=== PATIENT | female | born 1960 | race Caucasian/White ===

== ENCOUNTER 2022-11-03 09:16 | Emergency (ER) | payer SELFPAY ==
[2022-11-03 10:14] LABS: Absolute Lymphocytes (CBC) 1.4 K/uL (0.7-4.9); Hematocrit 39.5 % (36.0-45.0); Lymphocytes % 29.1 % (15.3-44.8); MCV 91.9 fL (80-100); MPV 6.4 fL (7.6-11.3)
[2022-11-03 10:30] LABS: Potassium 3.5 mmol/L (3.5-5.1); Troponin High Sensitivity 9.1 pg/mL (<58.9)
--- NOTE | 2022-11-03 10:46 | RAD REPORT ---
EXAM DESCRIPTION: RAD - Chest Single View - 11/03/2022 9:54 am CLINICAL HISTORY: DYSPNEA, history of COPD, cough and congestion COMPARISON: None TECHNIQUE: AP portable chest image was obtained 11/03/2022 9:54 am . FINDINGS: No focal mass or consolidation noted. Interstitial markings are prominent. This could all be chronic interstitial lung disease. A minimal superimposed infiltrate or interstitial edema would b e possible. Heart and vasculature are normal. No measurable pleural effusion and no pneumothorax. No acute bony abnormality seen. No acute aortic findings suspected. IMPRESSION: No focal lung parenchymal process. Prominent interstitial lung pattern matches the provided history of COPD. Minimal interstitial edema or infiltrate can be masked in this setting.
[2022-11-03] MEDS ORDERED: IPRATROPIUM BROM 0.5MG/2.5ML ONE (10:48)
[2022-11-03] MEDS ORDERED: ALBUTEROL 2.5 MG/3 ML NEB SOL ONE (10:48)
[2022-11-03] MEDS ORDERED: METHYLPREDNISOLONE 125 MG INJ ONE (10:48)
--- NOTE | 2022-11-03 11:28 | ER ---
Nurse's Notes [facility] Name: Giuliana Freeman Age: 62 yrs Sex: Female : 1960 Arrival Date: 11/03/2022 Time: 09:18 Bed 13 Private MD: Diagnosis: COPD/ Chronic obstructive pulmonary disease with (acute) exacerbation Presentation: 11/03 09:39 Chief complaint: Patient states: cough, chest congestion and shortness of breath that ss has been ongoing x 2-3 months, is getting worse. Pt reports she is having a COPD exacerbation. Coronavirus screen: Client presents with at least one sign or symptom that may indicate coronavirus-19. Ebola Screen: Patient denies exposure to infectious person. Patient denies travel to an Ebola-affected area in the 21 days before illness onset. Initial Sepsis Screen: Does the patient meet any 2 criteria? No. Patient's initial sepsis screen is negative. Does the patient have a suspected source of infection? No. Patient's initial sepsis screen is negative. Risk Assessment: Do you want to hurt yourself or someone else? Patient reports no desire to harm self or others. Onset of symptoms was September 2022. 09:39 Method Of Arrival: Ambulatory ss 09:39 Acuity: TAMRA 3 ss Triage Assessment: 12:03 General: Appears uncomfortable. General: Behavior is calm, cooperative. Respiratory: db Reports shortness of breath since 2 months Onset: The symptoms/episode began/occurred gradually, the patient has moderate shortness of breath. Historical: - Allergies: 09:43 Codeine; ss - PMHx: 09:43 COPD; ss - Immunization history:: Client reports having NOT received the Covid vaccine. - Social history:: Smoking status: Patient/guardian denies using tobacco, the patient reports quitting approximately 1 years ago. Screenin:45 [facility] ED Fall Risk Assessment (Adult) History of falling in the last 3 months, db including since admission No falls in past 3 months (0 pts). [facility] ED Fall Risk Assessment (Adult) Confusion or Disorientation No (0 pts) Intoxicated or Sedated No (0 pts) Impaired Gait No (0 pts) Mobility Assist Device Used No (0 pt) Altered Elimination No (0 pt) Score/Fall Risk Level 0 - 2 = Low Risk Oriented to surroundings, Maintained a safe environment. Abuse screen: Denies threats or abuse. Denies injuries from another. Nutritional screening: No deficits noted. Tuberculosis screening: No symptoms or risk factors identified. Assessment: 10:45 Reassessment: Patient appears in no apparent distress at this time. Patient and/or db family updated on plan of care and expected duration. Pain level reassessed. Patient is alert, oriented x 3, equal unlabored respirations, skin warm/dry/pink. patient came in for shortness of breath that has gradually gotten worse over a couple of months. General: Appears uncomfortable, Behavior is calm, cooperative. Pain: Denies pain. Neuro: No deficits noted. Level of Consciousness is awake, alert, obeys commands, Oriented to person, place, time. Cardiovascular: No deficits noted. Capillary refill < 3 seconds Rhythm is sinus rhythm. Respiratory: Airway is patent Respiratory effort is even, labored, Respiratory pattern is regular, symmetrical, Breath sounds are clear Breath sounds are diminished bilaterally. GI: No deficits noted. No signs and/or symptoms were reported involving the gastrointestinal system. : No deficits noted. No signs and/or symptoms were reported regarding the genitourinary system. EENT: No deficits noted. No signs and/or symptoms were reported regarding the EENT system. Derm: No deficits noted. No signs and/or symptoms reported regarding the dermatologic system. 11:30 Reassessment: Patient appears in no apparent distress at this time. Patient and/or db family updated on plan of care and expected duration. Pain level reassessed. Patient is alert, oriented x 3, equal unlabored respirations, skin warm/dry/pink. Patient states feeling better. Patient states symptoms have improved. 12:30 Reassessment: Patient appears in no apparent distress at this time. No changes from db previously documented assessment. Patient and/or family updated on plan of care and expected duration. Pain level reassessed. Patient is alert, oriented x 3, equal unlabored respirations, skin warm/dry/pink. 12:55 Reassessment: Patient appears in no apparent distress at this time. Patient and/or db family updated on plan of care and expected duration. Pain level reassessed. Patient is alert, oriented x 3, equal unlabored respirations, skin warm/dry/pink. Patient states symptoms have improved. Vital Signs: 09:39 BP 173 / 108; Pulse 97; Resp 20; Temp 97.7(O); Pulse Ox 94% on R/A; Weight 68.04 kg; ss Height 5 ft. 7 in. (170.18 cm); Pain 0/10; 11:00 BP 141 / 76; Pulse 87; Resp 18; Pulse Ox 100% on Nebulizer Mask; db 11:30 BP 150 / 81; Pulse 99; Resp 18; Pulse Ox 95% on R/A; db 12:00 BP 145 / 78; Pulse 96; Resp 20; Pulse Ox 92% on R/A; db 12:30 BP 165 / 86; Pulse 101; Resp 20; Pulse Ox 94% on R/A; db 09:39 Body Mass Index 23.49 (68.04 kg, 170.18 cm) ED Course: 09:18 Patient arrived in ED. mr 09:19 Mehreen Otoole FNP [facility]. jh7 09:19 Catrachita Roberts MD is Attending Physician. jh7 09:43 Triage completed. ss 09:43 Arm band placed on right wrist. ss 09:55 XRAY Chest (1 view) In Process Unspecified. EDMS 10:08 Basic Metabolic Panel Sent. bc6 10:08 CBC with Diff Sent. bc6 10:08 Troponin HS Sent. bc6 10:08 Initial lab(s) drawn, by mo, sent to lab. Inserted saline lock: 20 gauge in left wrist, bc6 using aseptic technique. 10:43 Jazmyne Mejia, RN is Primary Nurse. db 10:45 Patient has correct armband on for positive identification. Bed in low position. Call db light in reach. Side rails up X 1. 10:45 Warm blanket given. db 10:45 No provider procedures requiring assistance completed. db 12:58 IV discontinued, intact, bleeding controlled, No redness/swelling at site. db Administered Medications: 10:45 Drug: SOLU-Medrol (methylPrednisoLONE) 125 mg Route: IVP; Site: right forearm; db 13:01 Follow up: Response: No adverse reaction db 10:45 Drug: Albuterol - atroVENT (ipratropium) (3:1) (2.5 mg - 0.5 mg) 3 ml Route: Nebulizer; db 13:01 Follow up: Response: No adverse reaction db Medication: 10:45 VIS not applicable for this client. db Outcome: 10:45 Condition: stable db 11:28 Discharge ordered by MD. bales 12:58 Discharged to home ambulatory, with family. db 12:58 Condition: stable 12:58 Discharge instructions given to patient, family, Instructed on discharge instructions, follow up and referral plans. Demonstrated understanding of instructions, Prescriptions given X 3. 13:01 Patient left the ED. db Signatures: Dispatcher [employer] [facility] LesterCheryl Shelby, RN RN Mehreen Briggs, DIRECTOR PHYSICAL THERAPY DIRECTOR PHYSICAL THERAPY Jazmyne Javed RN RN Tabitha Garcia 6
--- NOTE | 2022-11-03 11:28 | EDPHYS ---
Physician Documentation [facility] Name: Giuliana Freeman Age: 62 yrs Sex: Female : 1960 Arrival Date: 11/03/2022 Time: 09:18 Bed 13 Private MD: ROSEANN Physician Catrachita Roberts HPI: 11/03 09:15 This 62 yrs old Female presents to ER via Unassigned with complaints of Breathing jh7 Difficulty, Cough, Congestion. 09:15 The patient has shortness of breath at rest, and the patient has a history of COPD. jh7 Onset: The symptoms/episode began/occurred 3 month(s) ago, and became worse. Duration: The symptoms are chronic, for 1 year(s). The patient's shortness of breath is aggravated by exertion. Associated signs and symptoms: Pertinent positives: productive cough, Pertinent negatives: chest pain, dizziness, fever, nausea, numbness in extremities, vomiting. Patient reports that she received a diagnosis of COPD December 2020. States that she is scheduled to see a poultry inseminator for the first time on 17 November. Reports that she has run out of prednisone and albuterol, and reports that she feels that she has been drowning in her secretions for the past few months. States that her shortness of breath has worsened. Reports that she has been filling up water bottles with her secretions over the past few months.. Historical: - Allergies: 09:43 Codeine; ss - PMHx: 09:43 COPD; ss - Immunization history:: Client reports having NOT received the Covid vaccine. - Social history:: Smoking status: Patient/guardian denies using tobacco, the patient reports quitting approximately 1 years ago. ROS: 09:15 Constitutional: Negative for fever, chills, and weight loss, Eyes: Negative for injury, jh7 pain, redness, and discharge, ENT: Negative for injury, pain, and discharge, Neck: Negative for injury, pain, and swelling, Cardiovascular: Negative for chest pain, palpitations, and edema, Abdomen/GI: Negative for abdominal pain, nausea, vomiting, diarrhea, and constipation, Back: Negative for injury and pain, MS/Extremity: Negative for injury and deformity, Skin: Negative for injury, rash, and discoloration, Neuro: Negative for headache, weakness, numbness, tingling, and seizure. 09:15 Respiratory: Positive for cough, with yellow sputum, shortness of breath, at rest. wheezing. 09:15 All other systems are negative. Exam: 09:15 Constitutional: This is a well developed, well nourished patient who is awake, alert, jh7 and in no acute distress. Eyes: Pupils equal round and reactive to light, extra-ocular motions intact. Lids and lashes normal. Conjunctiva and sclera are non-icteric and not injected. Cornea within normal limits. Periorbital areas with no swelling, redness, or edema. ENT: Nares patent. No nasal discharge, no septal abnormalities noted. Tympanic membranes are normal and external auditory canals are clear. Oropharynx with no redness, swelling, or masses, exudates, or evidence of obstruction, uvula midline. Mucous membranes moist. Neck: Trachea midline, no thyromegaly or masses palpated, and no cervical lymphadenopathy. Supple, full range of motion without nuchal rigidity, or vertebral point tenderness. No Meningismus. Cardiovascular: Regular rate and rhythm with a normal S1 and S2. No gallops, murmurs, or rubs. Normal PMI, no JVD. No pulse deficits. Abdomen/GI: Soft, non-tender, with normal bowel sounds. No distension or tympany. No guarding or rebound. No evidence of tenderness throughout. Back: No spinal tenderness. No costovertebral tenderness. Full range of motion. Skin: Warm, dry with normal turgor. Normal color with no rashes, no lesions, and no evidence of cellulitis. MS/ Extremity: Pulses equal, no cyanosis. Neurovascular intact. Full, normal range of motion. Neuro: Awake and alert, GCS 15, oriented to person, place, time, and situation. Motor strength 5/5 in all extremities. Sensory grossly intact. Normal gait. 09:15 Respiratory: mild respiratory distress is noted, Respirations: normal, Breath sounds: wheezing: that is moderate, is heard diffusely. Vital Signs: 09:39 BP 173 / 108; Pulse 97; Resp 20; Temp 97.7(O); Pulse Ox 94% on R/A; Weight 68.04 kg; ss Height 5 ft. 7 in. (170.18 cm); Pain 0/10; 11:00 BP 141 / 76; Pulse 87; Resp 18; Pulse Ox 100% on Nebulizer Mask; db 11:30 BP 150 / 81; Pulse 99; Resp 18; Pulse Ox 95% on R/A; db 12:00 BP 145 / 78; Pulse 96; Resp 20; Pulse Ox 92% on R/A; db 12:30 BP 165 / 86; Pulse 101; Resp 20; Pulse Ox 94% on R/A; db 09:39 Body Mass Index 23.49 (68.04 kg, 170.18 cm) ss MDM: 09:19 Patient medically screened. [facility] 12:30 Differential diagnosis: asthma, Bronchitis Chronic Obstructive Pulmonary Disease [facility] pneumonia, pulmonary edema, reactive airway disease. Data reviewed: vital signs, nurses notes, lab test result(s), EKG, radiologic studies, plain films. Data interpreted: Pulse oximetry: is 96 %. Interpretation: normal. Test interpretation: by ED physician or midlevel provider: ECG, plain radiologic studies. Counseling: I had a detailed discussion with the patient and/or guardian regarding: the historical points, exam findings, and any diagnostic results supporting the discharge/admit diagnosis, to return to the emergency department if symptoms worsen or persist or if there are any questions or concerns that arise at home. Response to treatment: the patient's symptoms have markedly improved after treatment. ED course: The patient symptoms significantly improved after medication and neb therapy. She stated that she felt much better and felt comfortable going home. Gave her strict ER precautions if her symptoms worsened despite medication use, she should return to the ER for further eval. Refilled all medication. The patient plans to follow-up with her poultry inseminator on the .. 11/03 09:32 Order name: Basic Metabolic Panel; Complete Time: 10:55 [facility] 11/03 09:32 Order name: CBC with Diff; Complete Time: 12:24 [facility] 11/03 09:32 Order name: Troponin HS; Complete Time: 10:55 [facility] 11/03 09:32 Order name: XRAY Chest (1 view); Complete Time: 10:55 [facility] 11/03 10:18 Order name: CBC Smear Scan; Complete Time: 12:24 [facility] 11/03 09:32 Order name: EKG; Complete Time: 09:33 [facility] 11/03 09:32 Order name: Cardiac monitoring; Complete Time: 11:11 [facility] 11/03 09:32 Order name: EKG - Nurse/Tech; Complete Time: 12:00 [facility] 11/03 09:32 Order name: IV Saline Lock; Complete Time: 10:08 [facility] 11/03 09:32 Order name: Labs collected and sent; Complete Time: 10:08 [facility] 11/03 09:32 Order name: O2 Per Protocol; Complete Time: 11:11 [facility] 11/03 09:32 Order name: O2 Sat Monitoring; Complete Time: 11:11 EC: Rate is 97 beats/min. Rhythm is regular. QRS [place] is Normal. AL interval is normal at 7 172 msec. QRS interval is normal at 96 msec. QT interval is normal at 352 msec. No Q waves. T waves are Normal. Clinical impression: NSR w/ Non-specific ST/T Changes. Administered Medications: 10:45 Drug: SOLU-Medrol (methylPrednisoLONE) 125 mg Route: IVP; Site: right forearm; db 13:01 Follow up: Response: No adverse reaction db 10:45 Drug: Albuterol - atroVENT (ipratropium) (3:1) (2.5 mg - 0.5 mg) 3 ml Route: Nebulizer; db 13:01 Follow up: Response: No adverse reaction db Disposition: 18:39 STAFF ATTESTATION STATEMENT: I was immediately available onsite in the emergency sd2 department for consultation in the care of this patient. I did not see or examine this patient. Catrachita Roberts MD. Disposition Summary: 11/03/22 11:28 Discharge Ordered Location: Home [facility] Problem: chronic [facility] Symptoms: have improved [facility] Condition: Stable [facility] Diagnosis - COPD/ Chronic obstructive pulmonary disease with (acute) exacerbation [facility] Followup: [facility] - With: Private Physician - When: 2 - 3 days - Reason: Recheck today's complaints Discharge Instructions: - Discharge Summary Sheet [facility] - Chronic Obstructive Pulmonary Disease [facility] - Chronic Obstructive Pulmonary Disease Exacerbation [facility] Forms: - Medication Reconciliation Form [facility] - Thank You Letter [facility] Prescriptions: - ProAir HFA 90 mcg/actuation Inhalation HFA aerosol inhaler - inhale 2 puff by INHALATION route every 4-6 hours As needed; 1 Inhaler; [facility] Refills: 0, Product Selection Permitted - Medrol (Jagdish) 4 mg Oral Tablets, Dose Pack - take 1 tablet by ORAL route as directed - follow package instructions; 1 jh7 packet; Refills: 0, Product Selection Permitted - Albuterol Sulfate 2.5 mg /3 mL (0.083 %) Inhalation Solution for Nebulization - inhale 1 unit by NEBULIZATION route every 8 hours As needed; 1 box; Refills: 0, jh7 Product Selection Permitted Signatures: Dispatcher [employer] Halie Ding, RN RN ss Mehreen Otoole, MILK DRIVER MILK DRIVER [facility] Catrachita Roberts MD MD nd2 Jazmyne Mejia RN RN db
[2022-11-03 12:24] LABS: Blood Morphology Comment NOT SEEN (NOT SEEN); Platelet Estimate ADEQ; White Blood Cell Scan OK (OK)
[2022-11-03 13:20] VITALS: TEMP 97.7
[2022-11-03 13:29] VITALS: BP 165/86; O2SAT 94
--- NOTE | 2022-11-04 14:33 | EKG ---
Test Date: 2022-11-03 Test Time: 11:22:38 Position Classifier: TIANA MEASUREMENT RESULTS: Intervals: Rate: 103 MO: 152 QRSD: 92 QT: 358 QTc: 468 [place]: P: 81 MO: 152 QRS: 73 T: 46 INTERPRETIVE STATEMENTS: Sinus tachycardia Minimal voltage criteria for LVH, may be normal variant Nonspecific ST abnormality Abnormal ECG No previous ECG available for comparison Electronically Signed On 11-04-22 14:31:34 TIN CONTAINER STRAIGHTENER by Zack Woody
--- NOTE | 2022-11-05 16:07 | EKG ---
Test Date: 2022-11-03 Test Time: 11:23:31 Forklift Technician: TIANA MEASUREMENT RESULTS: Intervals: Rate: 97 AR: 172 QRSD: 96 QT: 352 QTc: 447 [place]: P: 78 AR: 172 QRS: 70 T: 46 INTERPRETIVE STATEMENTS: Normal sinus rhythm Moderate voltage criteria for LVH, may be normal variant Lateral infarct, age undetermined Abnormal ECG Compared to ECG 11/03/2022 11:22:38 Myocardial infarct finding now present Sinus tachycardia no longer present ST (T wave) deviation no longer present Electronically Signed On 11-05-22 16:05:23 FINE GRADE OPERATOR by Zack Woody
== END 2022-11-03 13:01 | disposition home or self-care (01) ==
LOC: ER 09:16
DX: J44.1 Chronic obstructive pulmonary disease with (acute) exacerbation (principal); Z88.5 Allergy status to narcotic agent
CPT/HCPCS: 36415; 71045; 80048; 84484; 85025; 93005; 94640; 96374; 99285; J2930; J7613; J7644